=== PATIENT | female | born 1955 | race African-American/Black ===

== ENCOUNTER 2021-04-15 18:49 | Emergency (ER) | payer MEDICARE ==
[~2021-04-15] VITALS: Ht 160 cm; Wt 81.0 kg
[2021-04-15] MEDS ORDERED: ACETAMINOPHEN 325MG TABLET PO ONE (23:00)
[2021-04-15 23:43] VITALS: BP 164/85
== END 2021-04-15 23:44 | disposition home or self-care (01) ==
LOC: ER 18:49
DX: S49.81XA Other specified injuries of right shoulder and upper arm, initial encounter (principal); V49.59XA Passenger injured in collision with other motor vehicles in traffic accident, initial encounter; Y93.89 Activity, other specified; Y92.89 Other specified places as the place of occurrence of the external cause; Y99.8 Other external cause status; E11.9 Type 2 diabetes mellitus without complications; I10 Essential (primary) hypertension; Z90.710 Acquired absence of both cervix and uterus
CPT/HCPCS: 73030; 99284